=== PATIENT | male | born 1945 | race Caucasian/White ===

== ENCOUNTER 2017-02-15 21:07 | Emergency (ER) | payer OTHER ==
[~2017-02-15] VITALS: Ht 188 cm; Wt 98.3 kg
[2017-02-15 23:14] VITALS: BP 154/88
== END 2017-02-15 23:21 | disposition home or self-care (01) ==
LOC: EDBD 21:07 → EME 21:07
DX: R51 Headache (principal); F17.200 Nicotine dependence, unspecified, uncomplicated
CPT/HCPCS: 85651; 99281; 99284; J1200; J2765